=== PATIENT | male | born 1950 | race Caucasian/White ===

== ENCOUNTER → 2018-01-30 | Outpatient (CLI) | payer OTHER, SELFPAY ==
[~2018-01-30] MED LIST: ALEN70 PO; AMLO5 PO; ASPI81CH PO; AZAT50 PO; Allegra-D 12 H1 EACH PO; BUSP10 PO; CALCA500CH; CALCIUM 500 +1 EAC2 PO; CHOL10002; CHOL10002 PO; CLOB.05TC TOP; CROMNS; CYCL10 PO; Chest Congesti400 MG PO; DIAZ10 PO; DILT120 PO; DILTIAZEM 24HR120 MG PO; DIPH50 PO; DONA1500 MG PO; Daily Vitamin1 EAC8 PO; Ester-C 500 MG1 EACH; FEXPSEER PO; FINA5 PO; FISH OIL OMEGA1 EACH PO; FISH1000 PO; Flonase 0.05% N16 GM INH; GABA600 PO; GLUC500 PO; GOLD BOND BODY TP; GUAI600T33 PO; HYDACE10B PO; Imuran50 MG PO; LAVAP17G PO; LINZESS290 MCG PO; LISHYD2025 PO; LISI5 PO; LOSA25 PO; LOVA40 PO; METO25ER PO; MIDO5 PO; MSM1000 MG PO; MSM1500 MG PO; MULTI VITAMIN1 EACH PO; Medi-Meclizine25 MG PO; Ms Contin30 MG PO; NAPR220 PO; NASACORT10.8 ML; OMEP20ER PO; OMEPRAZOLE MAGN20 MG PO; PRAZ1 PO; PRAZ5 PO; PREG200 PO; Percocet 5-3251 EACH PO; TESTOSTERONE5 G1 TD; TIZANIDINE HCL4 MG PO; TRAZ100 PO
== END | disposition home or self-care (01) ==
LOC: LAB UCHC 05:55 → LAB SHORT 05:55 → EDSTATUS 01-27 08:55 → LAB FUT 01-27 08:55
PROVIDERS: Internal Medicine Nephrology
DX: N18.2 Chronic kidney disease, stage 2 (mild) (principal); E86.9 Volume depletion, unspecified
CPT/HCPCS: 82530

== ENCOUNTER 2019-04-20 13:39 | Day surgery (SDC) | payer MEDICARE, OTHER ==
[~2019-04-20] VITALS: Ht 172.7 cm; Wt 88.7 kg
[~2019-04-20 13:39] MED LIST changes: +ALLEGRA ALLERG180 MG PO; +ANDRODERM1 EAC1 TD; +ATOR40TA PO; +Amitiza24 MCG PO; +Aspirin EC81 MG PO; +BENADRYL25 MG PO; +CLON.1 PO; +CLON.5 PO; +Calcium Carbon500 MG PO; +Ester-C 500 MG1 EACH PO; +FISH OIL 1,2001 EACH PO; +FURO40 PO; +Flonase 0.05% N16 GM; +Fludrocortison0.1 MG PO; +GAVILAX17 GM PO; +Glucosamine H1500 MG PO; +HYDR10 PO; +LOSA50 PO; +METCAR500 PO; +MORP30ER PO; +MSM500 MG PO; +Metoprolol Succ25 MG PO; +Multivitamin1 EAC1 PO; +Neurontin600 MG PO; +POTCHL10ER PO; +PROLIA60 MG/1 ML SC; +Percocet 10-321 EACH PO; +Prilosec Otc20 MG PO; +VITAMIN D32000 UNIT PO
[2019-04-20] MEDS ORDERED: Klor-Con 1010 MEQ (14:41)
== END 2019-04-20 17:30 | disposition home or self-care (01) ==
LOC: ORSCSDS 13:39
PROVIDERS: Internal Medicine Gastroenterology
PROC: 0DB98ZX Excision of Duodenum, Via Natural or Artificial Opening Endoscopic, Diagnostic (ICD-10-PCS; principal; 2019-04-20 15:15)
PROC: 0DB58ZX Excision of Esophagus, Via Natural or Artificial Opening Endoscopic, Diagnostic (ICD-10-PCS; principal; 2019-04-20 15:15)
PROC: 0DB68ZX Excision of Stomach, Via Natural or Artificial Opening Endoscopic, Diagnostic (ICD-10-PCS; principal; 2019-04-20 15:15)
DX: K21.9 Gastro-esophageal reflux disease without esophagitis (principal); K31.7 Polyp of stomach and duodenum; I10 Essential (primary) hypertension; E78.5 Hyperlipidemia, unspecified
CPT/HCPCS: 88305; 88341; 88342; J2001; J2250; J2704; J7120

== ENCOUNTER 2020-05-17 11:56 | Day surgery (SDC) | payer MEDICARE, OTHER ==
[~2020-05-17] VITALS: Ht 172.7 cm; Wt 83.6 kg
[~2020-05-17 11:56] MED LIST changes: +Klor-Con 1010 MEQ
[2020-05-17] MEDS ORDERED: Clomipramine HC50 MG (12:39)
[2020-05-17] MEDS ORDERED: Ativan1 MG (12:40)
[2020-05-17] MEDS ORDERED: ACET250 (12:41)
[2020-05-17] MEDS ORDERED: AMLO5 (12:41)
[2020-05-17] MEDS ORDERED: AZELASTINE137 MCG/01 (12:42)
[2020-05-17] MEDS ORDERED: BUSP10 (12:43)
[2020-05-17] MEDS ORDERED: BENADRYL25 MG ×2 (12:43→12:51)
[2020-05-17] MEDS ORDERED: SIME80CH (12:44)
[2020-05-17] MEDS ORDERED: CYCL10 (12:44)
[2020-05-17] MEDS ORDERED: Flonase 0.05% N16 GM (12:45)
[2020-05-17] MEDS ORDERED: FLUDROCORTISON0.1 MG (12:45)
[2020-05-17] MEDS ORDERED: GUAI600T33 (12:45)
[2020-05-17] MEDS ORDERED: FURO20 (12:46)
[2020-05-17] MEDS ORDERED: LIDO5TO (12:47)
[2020-05-17] MEDS ORDERED: MSM1000 M3 (12:47)
[2020-05-17] MEDS ORDERED: MECL25 (12:47)
[2020-05-17] MEDS ORDERED: OXYACE7.5T (12:48)
[2020-05-17] MEDS ORDERED: GABA400 (12:48)
[2020-05-17] MEDS ORDERED: PROLIA60 MG/1 ML (12:49)
[2020-05-17] MEDS ORDERED: RABEPRAZOLE SOD20 MG (12:49)
[2020-05-17] MEDS ORDERED: TELM20 (12:49)
[2020-05-17] MEDS ORDERED: TESTOSTERONE60 GM (12:50)
[2020-05-17] MEDS ORDERED: ASCO500 (12:50)
--- NOTE | 2020-05-17 14:20 | NUR ---
05/17/20 1420 Lakeshia Jennings INJECTED 4CC OF NORMAL SALINE
== END 2020-05-17 15:00 | disposition home or self-care (01) ==
LOC: ORSCSDS 11:56
PROVIDERS: Internal Medicine Gastroenterology
PROC: 0DBL8ZX Excision of Transverse Colon, Via Natural or Artificial Opening Endoscopic, Diagnostic (ICD-10-PCS; principal; 2020-05-17 13:30)
PROC: 3E0H8GC Introduction of Other Therapeutic Substance into Lower GI, Via Natural or Artificial Opening Endoscopic (ICD-10-PCS; principal; 2020-05-17 13:30)
DX: K50.90 Crohn's disease, unspecified, without complications (principal); Z86.010 Personal history of colon polyps; D12.3 Benign neoplasm of transverse colon; K57.30 Diverticulosis of large intestine without perforation or abscess without bleeding; K64.8 Other hemorrhoids; I10 Essential (primary) hypertension; I25.10 Atherosclerotic heart disease of native coronary artery without angina pectoris; G47.33 Obstructive sleep apnea (adult) (pediatric); K21.9 Gastro-esophageal reflux disease without esophagitis; Z95.0 Presence of cardiac pacemaker; Z79.82 Long term (current) use of aspirin; Z79.899 Other long term (current) drug therapy
CPT/HCPCS: 88305; J2704; J7120

== ENCOUNTER 2020-05-27 09:49 | Emergency (ER) | payer MEDICARE, SELFPAY ==
[~2020-05-27] VITALS: Ht 172.7 cm; Wt 79.4 kg
[~2020-05-27 09:49] MED LIST changes: +ACET250; +AMLO5; +ASCO500; +AZELASTINE137 MCG/01; +Ativan1 MG; +BENADRYL25 MG; +BUSP10; +CYCL10; +Clomipramine HC50 MG; +FLUDROCORTISON0.1 MG; +FURO20; +GABA400; +GUAI600T33; +LIDO5TO; +MECL25; +MSM1000 M3; +OXYACE7.5T; +PROLIA60 MG/1 ML; +RABEPRAZOLE SOD20 MG; +SIME80CH; +TELM20; +TESTOSTERONE60 GM
== END 2020-05-27 10:30 | disposition home or self-care (01) ==
LOC: ER 09:49
DX: Z20.828 Contact with and (suspected) exposure to other viral communicable diseases (principal); R93.89 Abnormal findings on diagnostic imaging of other specified body structures; Z79.899 Other long term (current) drug therapy
CPT/HCPCS: 99281

== ENCOUNTER 2020-08-21 12:26 | Day surgery (SDC) | payer MEDICARE, SELFPAY ==
[~2020-08-21] VITALS: Ht 172.7 cm; Wt 90.5 kg
[~2020-08-21 12:26] MED LIST changes: +ATORVASTATIN CA40 MG PO; +Aciphex20 MG PO; +Amlodipine Besyl5 MG PO; +Aspir 8181 MG PO; +CATAPRES0.1 MG PO; +DONA750 MG PO; +FISH OIL-VIT D1 EACH PO; +FLONASE ALLERG9.9 ML; +FLUDROCORTISON0.1 M1 PO; +FURO20 PO; +MECL25 PO; +MULTI-VITAMIN1 EAC2 PO; +PERCOCET 10-321 EAC5 PO; +POTA10T PO; +TELM20 PO
--- NOTE | 2020-08-21 13:54 | NUR ---
08/21/20 1354 Radha Cross LIDOCAINE 2% 1:100,000 & BUPIVACAINE 0.5% 1:100,000 MIXED 1:1 FOR PRE INJECTION PER ORDER BY DR. HERRERA. BUPIVACAINE 0.5% 30 MLS MIXED WITH EPI 0.15 MLS TO MAKE BUPIVACAINE 0.5% 1:200,[address] HERRERA INJECTED 1.5 MLS OF BUPIVACAINE 0.5% 1:200,000 & LIDOCAINE 2% 1:100,000 1:1 AT [facility].
--- NOTE | 2020-08-21 16:21 | NUR ---
08/21/20 1620 Stephanie Menjivar 1500: PT COMPLAINS THAT HE IS UNABLE TO SNOW REMOVER PRESCRIPTION BECAUSE HE IS TAKING [facility]. ASKS IF HE CAN TAKE HIS PAIN MEDICATIONS THAT HE TAKES REGULARLY FOR CHRONIC PAIN. I EXPLAINED THAT HE NEEDS TO BE CAREFUL NOT TO TAKE TOO MANY PAIN MEDICATIONS AT THE SAME TIME, HE INSISTED THAT I ASK THE DR IF HE SHOULD FILL HIS RX THAT WAS GIVEN TO HIM TODAY BEFORE HE GOES HOME. I CONSULTED DR SAM AND HE RECOMMENDED THAT THE PATIENT NOT TAKE BOTH PAIN MEDICATIONS THAT HE NEEDS TO TAKE EITHER WHAT HE NORMALLY TAKES FOR PAIN OR THE NEW RX. I INSTRUCTED THE PT AND HE THEN REACHED IN IS PERSONAL BELONGINGS BAG AND TOOK HIS PERSONAL PAIN MEDICATIONS AND SAID THAT HE CAN NOT WAIT TO GET THE RX FILLED. I REMINDED THE PATIENT TO BE VERY CAREFUL TAKING NARCOTICS AND THAT HE NEEDS TO ONLY TAKE ONE OR THE OTHER NOT BOTH. HE STATES UNDERSTANDING AND AGREES THAT HE WILL ONLY USE ONE OR THE OTHER. THE PATIENTS TRANSPORTATION IS [employer] AND THEY WERE CALLED AT 1510 AND WE WERE TOLD THAT THEY WOULD NOT BE HERE UNTIL 1705. THEY WERE RECALLED BY [facility].JENNIFER AND SHE WAS ABLE TO GET A NEW ARRIVAL TIME OF 1630. PT IS WAITING COMFORTABLY IN A RECLINER WATCHING TV.
[2020-12-10] MEDS ORDERED: ALEVE220 MG PO (09:06)
[2020-12-10] MEDS ORDERED: Aspir 8181 MG PO (09:07)
[2020-12-10] MEDS ORDERED: ATOR40TA PO (09:07)
[2020-12-10] MEDS ORDERED: Amlodipine Bes2.5 MG PO (09:07)
[2020-12-10] MEDS ORDERED: AZAT50 PO (09:07)
[2020-12-10] MEDS ORDERED: BUSP10 PO (09:08)
[2020-12-10] MEDS ORDERED: CALCIUM CIT 311 EACH PO (09:08)
[2020-12-10] MEDS ORDERED: AZELASTINE137 MCG/01 (09:08)
[2020-12-10] MEDS ORDERED: BENADRYL25 MG PO (09:08)
[2020-12-10] MEDS ORDERED: CLON.1 PO (09:09)
[2020-12-10] MEDS ORDERED: BICARSIM FORTE125 MG PO (09:09)
[2020-12-10] MEDS ORDERED: FISH OIL 1,2001 EAC1 PO (09:09)
[2020-12-10] MEDS ORDERED: FINA5 PO (09:09)
[2020-12-10] MEDS ORDERED: ALLEGRA ALLERG180 MG PO (09:09)
[2020-12-10] MEDS ORDERED: CYCL10 PO (09:10)
[2020-12-10] MEDS ORDERED: Flonase 0.05% N16 GM (09:10)
[2020-12-10] MEDS ORDERED: GLUCOSAMINE-CH1 EAC7 PO (09:11)
[2020-12-10] MEDS ORDERED: FLUDROCORTISON0.1 M1 PO (09:11)
[2020-12-10] MEDS ORDERED: FURO20 PO (09:12)
[2020-12-10] MEDS ORDERED: GUAI600T33 PO (09:12)
[2020-12-10] MEDS ORDERED: [UNRECOGNIZED DRUG - OTHER] (09:13)
[2020-12-10] MEDS ORDERED: POTA10T PO (09:13)
[2020-12-10] MEDS ORDERED: MSM1000 M2 PO (09:14)
[2020-12-10] MEDS ORDERED: MECL25 PO (09:14)
[2020-12-10] MEDS ORDERED: MORP30ER PO (09:14)
[2020-12-10] MEDS ORDERED: MULTIPLE VITAM1 EACH PO (09:15)
[2020-12-10] MEDS ORDERED: NEURONTIN600 MG PO (09:15)
[2020-12-10] MEDS ORDERED: Percocet 5-3251 EACH PO (09:16)
[2020-12-10] MEDS ORDERED: PROLIA60 MG/1 ML SC (09:16)
[2020-12-10] MEDS ORDERED: MIRALAX17 GM PO (09:16)
[2020-12-10] MEDS ORDERED: TRAZ100 PO (09:17)
[2020-12-10] MEDS ORDERED: Aciphex20 MG PO (09:17)
[2020-12-10] MEDS ORDERED: TELM20 PO (09:17)
== END 2020-08-21 16:35 | disposition home or self-care (01) ==
LOC: ORSCSDS 12:26
PROVIDERS: Ophthalmology
PROC: 08BN0ZZ Excision of Right Upper Eyelid, Open Approach (ICD-10-PCS; principal; 2020-08-21 13:30)
PROC: 08BP0ZZ Excision of Left Upper Eyelid, Open Approach (ICD-10-PCS; principal; 2020-08-21 13:30)
DX: H02.423 Myogenic ptosis of bilateral eyelids (principal); I10 Essential (primary) hypertension; Z95.0 Presence of cardiac pacemaker; G47.33 Obstructive sleep apnea (adult) (pediatric); Z79.82 Long term (current) use of aspirin; Z79.899 Other long term (current) drug therapy
CPT/HCPCS: A9270; J0171; J2250; J3010

== ENCOUNTER → 2020-10-15 | Outpatient (CLI) | payer MEDICARE, SELFPAY ==
[~2020-10-15] MED LIST changes: +ALEVE220 MG PO; +Amlodipine Bes2.5 MG PO; +BICARSIM FORTE125 MG PO; +CALCIUM CIT 311 EACH PO; +FISH OIL 1,2001 EAC1 PO; +GLUCOSAMINE-CH1 EAC7 PO; +MIRALAX17 GM PO; +MSM1000 M2 PO; +MULTIPLE VITAM1 EACH PO; +NEURONTIN600 MG PO; +[UNRECOGNIZED DRUG - OTHER]
[2020-10-15 19:07] LABS: Protein, Urine Quantitative <5.0 mg/dL (0.0-11.9)
== END | disposition home or self-care (01) ==
LOC: LAB 07:00 → LAB SHORT 07:00
PROVIDERS: Internal Medicine Nephrology
DX: N18.30 Chronic kidney disease, stage 3 unspecified (principal); D63.1 Anemia in chronic kidney disease; E29.1 Testicular hypofunction; R80.9 Proteinuria, unspecified
CPT/HCPCS: 81050; 82043; 82570; 84156

== ENCOUNTER → 2020-11-22 | Outpatient (CLI) | payer MEDICARE, OTHER ==
[2020-11-22 13:36] LABS: Creatinine Urine 31.7 mg/dL (27.00-270.00); Microalbumin, Urine Quant. 5.44 mg/L (0.000-20.000)
== END | disposition home or self-care (01) ==
LOC: LAB SHORT 10:33 → LAB 10:33
PROVIDERS: Internal Medicine Nephrology
DX: N18.2 Chronic kidney disease, stage 2 (mild) (principal); D63.1 Anemia in chronic kidney disease; N25.81 Secondary hyperparathyroidism of renal origin; E55.9 Vitamin D deficiency, unspecified; E78.00 Pure hypercholesterolemia, unspecified; R76.9 Abnormal immunological finding in serum, unspecified; R94.5 Abnormal results of liver function studies; R94.6 Abnormal results of thyroid function studies; R80.9 Proteinuria, unspecified
CPT/HCPCS: 81050; 82043; 82570; 84156

== ENCOUNTER → 2020-11-26 | Outpatient (CLI) | payer MEDICARE, SELFPAY | END | disposition home or self-care (01) | LOC: PLD 07:09 → LAB SHORT 07:09 | DX: D48.7 Neoplasm of uncertain behavior of other specified sites (principal) | CPT/HCPCS: 88104 ==

== ENCOUNTER 2020-12-18 06:28 | Day surgery (SDC) | payer MEDICARE ==
[~2020-12-18] VITALS: Ht 172.7 cm; Wt 86.7 kg
--- NOTE | 2020-12-18 07:33 | NUR ---
12/18/20 0733 YVONNE FARIA PT TIMELINE FOR HIS MEDICATION ADMINISTRATION HX WAS DYNAMIC AND CHANGING.
--- NOTE | 2020-12-18 08:12 | NUR ---
12/18/20 0812 Cathy Hou 0.25CC OF EPI 1:1000 MIXED INTO 50CC OF INJECTABLE NACL FOR PRE-INJECTION BY . 1.5CC INJECTED
--- NOTE | 2020-12-18 09:23 | NUR ---
12/18/20 0923 Lisa Can PT. C/O SORE THROAT RATING "8". PT. STATES "I KNOW IT'S FROM THE TUBE." WILL MEDICATE PT.
--- NOTE | 2020-12-18 09:52 | NUR ---
12/18/20 0951 Lisa Can PT. VERBALIZES HIS PAIN IS BETTER RATING "5". PT. VERBALIZES HAS THROAT, NECK & BACK OF HEADACHE PAIN. PT. HAS CHRONIC PAIN. WILL CONTINUE TO MEDICATE PT. FOR PAIN PER DR. RATLIFF.
== END 2020-12-18 11:43 | disposition home or self-care (01) ==
LOC: ORSCSDS 06:28
PROVIDERS: Otolaryngology
PROC: 0CBG0ZX Excision of Right Submaxillary Gland, Open Approach, Diagnostic (ICD-10-PCS; principal; 2020-12-18 07:30)
DX: K11.23 Chronic sialoadenitis (principal); I10 Essential (primary) hypertension; G47.33 Obstructive sleep apnea (adult) (pediatric); K21.9 Gastro-esophageal reflux disease without esophagitis; N18.30 Chronic kidney disease, stage 3 unspecified; Z87.891 Personal history of nicotine dependence; Z95.0 Presence of cardiac pacemaker; Z79.899 Other long term (current) drug therapy; Z79.82 Long term (current) use of aspirin
CPT/HCPCS: 88307; J0171; J0330; J1100; J1720; J1885; J2270; J2405; J2704; J3010; J7120

== ENCOUNTER 2021-04-23 12:05 | Day surgery (SDC) | payer MEDICARE ==
[~2021-04-23] VITALS: Ht 172.7 cm; Wt 86.0 kg
[2021-04-23] MEDS ORDERED: TESTOSTERONE60 GM TD (12:56)
[2021-04-23] MEDS ORDERED: DIPH50 PO (12:57)
[2021-04-23] MEDS ORDERED: Boniva150 MG PO (12:58)
[2021-04-23] MEDS ORDERED: BUSPIRONE HCL30 M1 PO (12:59)
[2021-04-23] MEDS ORDERED: CATAPRES0.1 MG PO (13:01)
[2021-04-23] MEDS ORDERED: ALUMINUM H320 MG/5 M PO (13:15)
[2021-04-23] MEDS ORDERED: FURO40 PO (13:16)
[2021-04-23] MEDS ORDERED: LIDO700A20 (13:17)
[2021-04-23] MEDS ORDERED: METO25ER PO (13:18)
[2021-04-23] MEDS ORDERED: GUAI600T33 PO (13:19)
[2021-04-23] MEDS ORDERED: GABA800 PO (13:20)
[2021-04-23] MEDS ORDERED: PERCOCET 10-321 EAC9 PO (13:21)
[2021-04-23] MEDS ORDERED: ASCORBIC ACID500 MG PO (13:29)
[2021-04-23] MEDS ORDERED: VITAMIN D325 MC3 PO (13:30)
--- NOTE | 2021-04-23 13:59 | NUR ---
04/23/21 1359 Too Ramos 0.25ML OF EPI 1MG/ML ADDED TO 50ML OF MARCAINE 0.5% TO CREATE A MIXTURE OF MARCAINE 0.5% WITH EPI 1:200,000.
--- NOTE | 2021-04-23 14:48 | NUR ---
04/23/21 1448 Stephanie Menjivar PT IS RESTING IN RECLINER WITH ICE ON EYELIDS, HE DID HAVE OOZING OG BLOOD FROM BOTH EYE LIDS UPON ARRIVAL TO SDU, APPLIED DIRECT PRESSURE FOR FIVE MINS AND BLEEDING STOPPED. PT HAS CHRONIC PAIN AND STATES HE IS GOING TO TAKE HIS FROM HOME ORAL PAIN MEDICINE BEFORE HE LEAVES, HE IS ADVISED AGAINST THIS. HE SAYS HE ALWAYS TAKES THEM WHEN HE COMES HERE. IS IS STILL ADVISED AGAINST IT.
== END 2021-04-23 15:02 | disposition home or self-care (01) ==
LOC: ORSCSDS 12:05
PROVIDERS: Ophthalmology
PROC: 0W020ZZ Alteration of Face, Open Approach (ICD-10-PCS; principal; 2021-04-23 13:00)
DX: H57.813 Brow ptosis, bilateral (principal); I10 Essential (primary) hypertension; Z87.891 Personal history of nicotine dependence; G47.33 Obstructive sleep apnea (adult) (pediatric); Z79.899 Other long term (current) drug therapy; Z79.82 Long term (current) use of aspirin
CPT/HCPCS: A9270; J0171; J1100; J2250; J2405; J2704; J3010; J7040

== ENCOUNTER → 2021-06-23 | Outpatient (CLI) | payer MEDICARE ==
[~2021-06-23] MED LIST changes: +ALUMINUM H320 MG/5 M PO; +ASCORBIC ACID500 MG PO; +BUSPIRONE HCL30 M1 PO; +Boniva150 MG PO; +GABA800 PO; +LIDO700A20; +PERCOCET 10-321 EAC9 PO; +TESTOSTERONE60 GM TD; +VITAMIN D325 MC3 PO
== END ==
LOC: LAB SHORT 15:17
DX: L98.9 Disorder of the skin and subcutaneous tissue, unspecified (principal); L30.8 Other specified dermatitis
CPT/HCPCS: 88305; 88312

== ENCOUNTER 2023-04-09 13:11 | Day surgery (SDC) | payer OTHER ==
[~2023-04-09] VITALS: Ht 172.7 cm; Wt 78.7 kg
--- NOTE | 2023-04-09 15:29 | NUR ---
04/09/23 1529 KEVYN HALL JELLY ROLL PLACED TO ABDOMEN
[2023-04-09 16:43] VITALS: BP 111/76
== END 2023-04-09 16:45 | disposition home or self-care (01) ==
LOC: ORSCSDS 13:11
PROVIDERS: Internal Medicine Gastroenterology
PROC: 0DBM8ZX Excision of Descending Colon, Via Natural or Artificial Opening Endoscopic, Diagnostic (ICD-10-PCS; principal; 2023-04-09 14:15)
PROC: 0DBE8ZX Excision of Large Intestine, Via Natural or Artificial Opening Endoscopic, Diagnostic (ICD-10-PCS; principal; 2023-04-09 14:15)
DX: K50.10 Crohn's disease of large intestine without complications (principal); Z86.010 Personal history of colon polyps; K57.30 Diverticulosis of large intestine without perforation or abscess without bleeding; K64.8 Other hemorrhoids; G47.33 Obstructive sleep apnea (adult) (pediatric); I10 Essential (primary) hypertension; Z87.891 Personal history of nicotine dependence; Z79.899 Other long term (current) drug therapy; Z79.82 Long term (current) use of aspirin
CPT/HCPCS: 88305; J0461; J2001; J2405; J2704; J7120; Q9968

== ENCOUNTER 2024-03-08 11:47 | Day surgery (SDC) | payer OTHER ==
[~2024-03-08] VITALS: Ht 172.7 cm; Wt 70.7 kg
[~2024-03-08 11:47] MED LIST changes: +Lactated Ringer's 1,000 ML IV ONE; +Lidocaine 2% 5 ML SDV ONE; +Lidocaine HCl/Pf 1% 5 ML VIAL ONE; +propofoL 50 ML IV ONE
[2024-03-08] MEDS ORDERED: Amlodipine Bes2.5 MG (12:02)
[2024-03-08] MEDS ORDERED: Diflucan200 MG (12:03)
[2024-03-08] MEDS ORDERED: MYLANTA GAS MIN42 MG (12:05)
[2024-03-08] MEDS ORDERED: IRON FOLATE PL1 EACH (12:06)
[2024-03-08] MEDS ORDERED: FURO40 (12:06)
[2024-03-08] MEDS ORDERED: NARCAN4 M1 (12:06)
[2024-03-08] MEDS ORDERED: Lactated Ringer's 1,000 ML IV ONE (13:14)
[2024-03-08] MEDS ORDERED: propofoL 50 ML IV ONE ×2 (13:32→13:56)
[2024-03-08 15:02] VITALS: BP 121/68
== END 2024-03-08 15:11 | disposition home or self-care (01) ==
LOC: ORSCSDS 11:47
PROVIDERS: Internal Medicine Gastroenterology
PROC: 0DBE8ZX Excision of Large Intestine, Via Natural or Artificial Opening Endoscopic, Diagnostic (ICD-10-PCS; principal; 2024-03-08 13:30)
DX: K50.10 Crohn's disease of large intestine without complications (principal); Z86.0101 Personal history of adenomatous and serrated colon polyps; K57.30 Diverticulosis of large intestine without perforation or abscess without bleeding; Z79.899 Other long term (current) drug therapy; Z85.46 Personal history of malignant neoplasm of prostate; I10 Essential (primary) hypertension; G47.33 Obstructive sleep apnea (adult) (pediatric); K21.9 Gastro-esophageal reflux disease without esophagitis; Z87.891 Personal history of nicotine dependence; Z95.0 Presence of cardiac pacemaker; E78.5 Hyperlipidemia, unspecified
CPT/HCPCS: 88305; J2001; J2003; J2704; J7120